=== PATIENT | female | born 1965 | race Caucasian/White ===

== ENCOUNTER 2019-08-10 15:39 | Emergency (ER) | payer SELFPAY ==
--- NOTE | 2019-08-10 16:49 | EDM.PDOC ---
ED HPI GENERAL MEDICAL PROBLEM - General Chief Complaint: ENT Problem Stated Complaint: PAIN IN BOTH EAR/SORE THROAT Time Seen by Provider: 08/10/19 16:18 Source of Information: Reports: Patient History Limitations: Reports: No Limitations - History of Present Illness INITIAL COMMENTS - FREE TEXT/NARRATIVE: The patient presents with ear pain and sore throat. This started a few days ago. She has a low grade temp. She has no cough. She has nausea and vomiting. She has no asthma. Onset: Gradual Duration: Day(s): Location: Reports: Other (throat) Quality: Reports: Sharp Severity: Severe Improves with: Reports: None Worsens with: Reports: None Associated Symptoms: Reports: Fever/Chills. Denies: Chest Pain, Cough, Headaches, Nausea/Vomiting, Shortness of Breath Throat Pain Score (Numeric/FACES): 8 - Related Data Allergies Allergy/AdvReac Type Severity Reaction Status Date / Time No Known Allergies Allergy Verified 08/10/19 16:09 Home Meds: Home Meds Amoxicillin 875 mg PO BID #14 tab 08/10/19 [Rx] Past Medical History Cardiovascular History: Reports: Hypertension Musculoskeletal History: Reports: Back Pain, Chronic, Neck Pain, Chronic Social & Family History - Tobacco Use Smoking Status *Q: Current Every Day Smoker Years of Tobacco use: 38 Packs/Tins Daily: 0.5 - Caffeine Use Caffeine Use: Reports: Energy Drinks, Soda - Recreational Drug Use Recreational Drug Use: No ED ROS ENT - Review of Systems Review Of Systems: See Below Constitutional: Reports: No Symptoms HEENT: Reports: Throat Pain Respiratory: Reports: No Symptoms Cardiovascular: Reports: No Symptoms Endocrine: Reports: No Symptoms GI/Abdominal: Reports: No Symptoms : Reports: No Symptoms Musculoskeletal: Reports: No Symptoms Skin: Reports: No Symptoms ED EXAM, ENT - Physical Exam Exam: See Below Exam Limited By: No Limitations General Appearance: Alert, No Apparent Distress Ears: Normal External Exam, Normal Canal, Other (Erythema and fluids behind both TMS) Nose: Normal Inspection Mouth/Throat: Other (pharyngeal erythema) Course - Vital Signs Last Recorded V/S: Last Vital Signs Temp 98.3 F 08/10/19 16:07 Pulse 99 08/10/19 16:07 Resp 16 08/10/19 16:07 BP 207/115 H 08/10/19 16:07 Pulse Ox 99 08/10/19 16:07 - Orders/Labs/Meds Orders: Active Orders 24 hr Category Date Time Status STREP SCRN A RAPID W CULT CONF [RM] Stat Lab 08/10/19 16:13 Results Departure - Departure Time of Disposition: 17:00 Disposition: Home, Self-Care 01 Condition: Good Clinical Impression: Otitis media Qualifiers: Otitis media type: suppurative Chronicity: acute Laterality: bilateral Recurrence: non-recurrent Spontaneous tympanic membrane rupture: without spontaneous rupture Qualified Code(s): H66.003 - Acute suppurative otitis media without spontaneous rupture of ear drum, bilateral Pharyngitis Qualifiers: Pharyngitis/tonsillitis etiology: other specified organisms Qualified Code(s): J02.8 - Acute pharyngitis due to other specified organisms - Discharge Information *PRESCRIPTION DRUG MONITORING PROGRAM REVIEWED*: Not Applicable *COPY OF PRESCRIPTION DRUG MONITORING REPORT IN PATIENT JESUSITA: Not Applicable Prescriptions: Amoxicillin 875 mg PO BID #14 tab Referrals: PCP,Not In Area [Primary Care Provider] - Additional Instructions: Take amoxicillin 2 times per day for 7 days. Take motrin or tylenol for pain. Drink plenty of fluids. Please return if you are worse. Sepsis Event Note - Evaluation Sepsis Screening Result: No Definite Risk - Focused Exam Vital Signs: Vital Signs Temp Pulse Resp BP Pulse Ox 08/10/19 16:07 98.3 F 99 16 207/115 H 99 Date Exam was Performed: 08/10/19 Time Exam was Performed: 16:45 - My Orders Last 24 Hours: My Active Orders 08/10/19 16:13 STREP SCRN A RAPID W CULT CONF [RM] Stat - Assessment/Plan Last 24 Hours: My Active Orders 08/10/19 16:13 STREP SCRN A RAPID W CULT CONF [RM] Stat
== END 2019-08-10 17:20 | disposition home or self-care (01) ==
LOC: JD.ED 15:39
DX: H66.003 Acute suppurative otitis media without spontaneous rupture of ear drum, bilateral (principal); J02.8 Acute pharyngitis due to other specified organisms; F17.210 Nicotine dependence, cigarettes, uncomplicated
CPT/HCPCS: 87081; 87430; 99283